=== PATIENT | female | born 1940 | race Hispanic/Latino ===

== ENCOUNTER → 2017-05-04 | Outpatient (CLI) | payer MEDICARE, OTHER ==
[~2017-05-04] MED LIST: ALPR0.255 PO; CLON.1; GABA-529; LOSA50TA37
== END | disposition home or self-care (01) ==
LOC: RAH 13:34
PROVIDERS: ATTEND Psychiatry & Neurology Neurology
DX: I67.89 Other cerebrovascular disease (principal)
CPT/HCPCS: 70450

== ENCOUNTER 2019-04-20 11:01 | Emergency (ER) | payer MEDICARE, OTHER ==
[~2019-04-20 11:01] MED LIST changes: -CLON.1; +CLON0.1T2; -LOSA50TA37; +LOSA50TA64
[2019-04-20] MEDS ORDERED: CLONIDINE HCL 0.1 MG TABLET ONE (11:36)
[2019-04-20 11:42] LABS: BASOPHILS % (AUTO) 1.2 % (0.0-5.0); EOSINOPHILS % (AUTO) 3.6 % (0.0-8.0); HEMATOCRIT 44.5 % (36-48); LYMPHOCYTES % (AUTO) 38.4 % (21.0-51.0); MEAN CORPUSCULAR HEMOGLOBIN 24.8 pg (27.0-33.0); MEAN CORPUSCULAR HGB CONC 31.5 g/dL (32.0-36.0); MEAN CORPUSCULAR VOLUME 78.8 fL (79-99); MONOCYTES % (AUTO) 6.8 % (3.0-13.0); NEUTROPHILS % (AUTO) 49.9 % (40.0-77.0); PLATELET COUNT (AUTO) 266 K/uL (130-400); RED BLOOD CELL COUNT(AUTO) 5.65 MIL/uL (4.00-5.50); RED CELL DISTRIBUTION WIDTH 14.7 % (11.0-15.5); WHITE BLOOD COUNT (AUTO) 6.9 K/uL (4.8-10.8)
[2019-04-20 12:16] LABS: APPEARANCE,URINE Clear (CLEAR); BILIRUBIN,URINE Negative (NEGATIVE); COLOR,URINE Yellow (YELLOW); GLUCOSE, URINE (UA) Negative (NEGATIVE); KETONES,URINE Negative (NEGATIVE); LEUKOCYTE ESTERASE ,URINE Moderate (NEGATIVE); NITRATE,URINE Negative (NEGATIVE); OCCULT BLOOD,URINE Negative (NEGATIVE); PH,URINE 7.5 (5.0-8.0); PROTEIN,URINE Negative (NEGATIVE); UROBILINOGEN,URINE 0.2 mg/dL (0.2-1.0)
[2019-04-20 12:24] LABS: CREATININE 0.7 mg/dL (0.5-1.5); POTASSIUM 3.3 mmol/L (3.5-5.1)
[2019-04-20 12:29] LABS: BILIRUBIN,TOTAL 0.5 mg/dL (0.2-1.0); TOTAL PROTEIN, SERUM 8.2 g/dL (6.0-8.3)
[2019-04-20] MEDS ORDERED: SODIUM CHLORIDE 0.9% 1000ML 1,000 ML IV ONE (12:33)
[2019-04-20] MEDS ORDERED: SODIUM CHLORIDE 0.9% 50 ML IV ONE (12:33)
[2019-04-20 12:48] LABS: BACTERIA,URINE Rare /HPF (None Seen); RBC,URINE 0-1 /HPF (0-1); WBC,URINE 0-1 /HPF (0-1)
== END 2019-04-20 13:17 | disposition home or self-care (01) ==
LOC: EDH 11:01
DX: I10 Essential (primary) hypertension (principal); R20.2 Paresthesia of skin; Z86.73 Personal history of transient ischemic attack (TIA), and cerebral infarction without residual deficits
CPT/HCPCS: 36415; 70450; 80053; 81001; 84484; 85025; 93005; 99285; J7030

== ENCOUNTER 2019-05-10 21:37 | Emergency (ER) | payer OTHER ==
[2019-05-10] MEDS ORDERED: ONDANSETRON HCL 4 MG/2 ML VIAL ONE (22:14)
[2019-05-10] MEDS ORDERED: MORPHINE SULFATE 4 MG/1ML SYG ONE (22:14)
[2019-05-10 22:22] LABS: EOSINOPHILS % (AUTO) 3.3 % (0.0-8.0); HEMATOCRIT 44.5 % (36-48); LYMPHOCYTES % (AUTO) 26.3 % (21.0-51.0); MEAN CORPUSCULAR HEMOGLOBIN 24.6 pg (27.0-33.0); MEAN CORPUSCULAR HGB CONC 31.2 g/dL (32.0-36.0); MEAN CORPUSCULAR VOLUME 78.9 fL (79-99); MONOCYTES % (AUTO) 7.3 % (3.0-13.0); NEUTROPHILS % (AUTO) 61.9 % (40.0-77.0); PLATELET COUNT (AUTO) 231 K/uL (130-400); RED BLOOD CELL COUNT(AUTO) 5.64 MIL/uL (4.00-5.50); RED CELL DISTRIBUTION WIDTH 14.7 % (11.0-15.5); WHITE BLOOD COUNT (AUTO) 9.3 K/uL (4.8-10.8)
[2019-05-10 22:34] LABS: CREATININE 0.6 mg/dL (0.5-1.5); POTASSIUM 3.7 mmol/L (3.5-5.1)
[2019-05-10 22:38] LABS: INR 0.89 (0.85-1.15); PARTIAL THROMBOPLASTIN TIME 26.4 SEC (26.3-35.5); PROTHROMBIN TIME 9.4 SEC (9.6-11.6)
[2019-05-10 22:39] LABS: ALBUMIN 3.8 g/dL (3.5-5.0); BILIRUBIN,TOTAL 0.4 mg/dL (0.2-1.0); TOTAL PROTEIN, SERUM 7.8 g/dL (6.0-8.3)
== END 2019-05-11 00:32 | disposition home or self-care (01) ==
LOC: EDH 21:37
DX: I10 Essential (primary) hypertension (principal); R51 Headache; R11.2 Nausea with vomiting, unspecified; Z86.73 Personal history of transient ischemic attack (TIA), and cerebral infarction without residual deficits
CPT/HCPCS: 36415; 70450; 71045; 80053; 82550; 84484; 85025; 85610; 85730; 93005; 96374; 96375; 99284; J2270; J2405

== ENCOUNTER 2019-11-25 15:28 | Emergency (ER) | payer MEDICARE ==
[2019-11-25 16:05] LABS: BASOPHILS % (AUTO) 0.8 % (0.0-5.0); EOSINOPHILS % (AUTO) 3.3 % (0.0-8.0); HEMATOCRIT 45.6 % (36-48); LYMPHOCYTES % (AUTO) 31.8 % (21.0-51.0); MEAN CORPUSCULAR HEMOGLOBIN 25.2 pg (27.0-33.0); MEAN CORPUSCULAR VOLUME 78.8 fL (79-99); MONOCYTES % (AUTO) 5.8 % (3.0-13.0); PLATELET COUNT (AUTO) 264 K/uL (130-400); RED BLOOD CELL COUNT(AUTO) 5.79 MIL/uL (4.00-5.50); RED CELL DISTRIBUTION WIDTH 14.6 % (11.0-15.5)
[2019-11-25 16:11] LABS: APPEARANCE,URINE Clear (CLEAR); BILIRUBIN,URINE Negative (NEGATIVE); COLOR,URINE Yellow (YELLOW); GLUCOSE, URINE (UA) Negative (NEGATIVE); KETONES,URINE Negative (NEGATIVE); LEUKOCYTE ESTERASE ,URINE Moderate (NEGATIVE); NITRATE,URINE Negative (NEGATIVE); OCCULT BLOOD,URINE Negative (NEGATIVE); PH,URINE 6.5 (5.0-8.0); PROTEIN,URINE Negative (NEGATIVE)
[2019-11-25 16:13] LABS: CREATININE 0.6 mg/dL (0.5-1.5); POTASSIUM 3.5 mmol/L (3.5-5.1)
[2019-11-25 16:17] LABS: BACTERIA,URINE Few /HPF (None Seen); RBC,URINE None Seen /HPF (0-1); SQUAMOUS EPITHELIAL CELL,UR 0-2 /HPF (0-2)
[2019-11-25 16:18] LABS: ALBUMIN 4.5 g/dL (3.5-5.0); BILIRUBIN,TOTAL 0.7 mg/dL (0.2-1.0); TOTAL PROTEIN, SERUM 8.6 g/dL (6.0-8.3)
== END 2019-11-25 17:19 | disposition home or self-care (01) ==
LOC: EDH 15:28
DX: N39.0 Urinary tract infection, site not specified (principal); H92.02 Otalgia, left ear; I10 Essential (primary) hypertension; Z86.73 Personal history of transient ischemic attack (TIA), and cerebral infarction without residual deficits; W01.190A Fall on same level from slipping, tripping and stumbling with subsequent striking against furniture, initial encounter; Y93.89 Activity, other specified; Y92.89 Other specified places as the place of occurrence of the external cause; Y99.8 Other external cause status
CPT/HCPCS: 36415; 70450; 72125; 80053; 81001; 82550; 84484; 85025; 87088; 93005

== ENCOUNTER 2020-04-13 07:47 | Emergency (ER) | payer MEDICARE ==
[2020-04-13] MEDS ORDERED: HYDRALAZINE HCL 25 MG TABLET ONE (08:20)
[2020-04-13 08:38] LABS: BASOPHILS % (AUTO) 0.6 % (0.0-5.0); HEMATOCRIT 45.6 % (36-48); LYMPHOCYTES % (AUTO) 17.8 % (21.0-51.0); MEAN CORPUSCULAR HEMOGLOBIN 25.2 pg (27.0-33.0); MEAN CORPUSCULAR HGB CONC 31.8 g/dL (32.0-36.0); MEAN CORPUSCULAR VOLUME 79.2 fL (79-99); NEUTROPHILS % (AUTO) 72.1 % (40.0-77.0); PLATELET COUNT (AUTO) 280 K/uL (130-400); RED BLOOD CELL COUNT(AUTO) 5.76 MIL/uL (4.00-5.50); RED CELL DISTRIBUTION WIDTH 14.6 % (11.0-15.5); WHITE BLOOD COUNT (AUTO) 14.5 K/uL (4.8-10.8)
[2020-04-13 08:49] LABS: BILIRUBIN,URINE Negative (NEGATIVE); COLOR,URINE Yellow (YELLOW); GLUCOSE, URINE (UA) Negative (NEGATIVE); KETONES,URINE Negative (NEGATIVE); LEUKOCYTE ESTERASE ,URINE Moderate (NEGATIVE); NITRATE,URINE Negative (NEGATIVE); OCCULT BLOOD,URINE Negative (NEGATIVE); PH,URINE 6.5 (5.0-8.0); PROTEIN,URINE Trace mg/dL (NEGATIVE)
[2020-04-13 08:50] LABS: APPEARANCE,URINE HAZY (CLEAR)
[2020-04-13] MEDS ORDERED: CEFTRIAXONE SODIUM 1 GM ONE (09:01)
[2020-04-13] MEDS ORDERED: SODIUM CHLORIDE 0.9% 50 ML IV ONE (09:01)
[2020-04-13 09:06] LABS: BILIRUBIN,TOTAL 1.4 mg/dL (0.2-1.0); CREATININE 0.6 mg/dL (0.5-1.5); POTASSIUM 3.3 mmol/L (3.5-5.1); TOTAL PROTEIN, SERUM 8.4 g/dL (6.0-8.3)
[2020-04-13 09:09] LABS: BACTERIA,URINE Rare /HPF (None Seen); MUCUS,URINE Few LPF (None Seen); RBC,URINE 0-1 /HPF (0-1); SQUAMOUS EPITHELIAL CELL,UR Rare /HPF (0-2)
== END 2020-04-13 09:50 | disposition home or self-care (01) ==
LOC: EDH 07:47
DX: N39.0 Urinary tract infection, site not specified (principal); I10 Essential (primary) hypertension; Z20.828 Contact with and (suspected) exposure to other viral communicable diseases
CPT/HCPCS: 36415; 80053; 81001; 84484; 85025; 87088; 87426; 93005; 96365; 99284; J0696; U0003

== ENCOUNTER 2020-12-15 18:20 | Emergency (ER) | payer MEDICARE, OTHER ==
[~2020-12-15] VITALS: Ht 154.9 cm; Wt 65.8 kg
[2020-12-15] MEDS ORDERED: ACETAMINOPHEN 500 MG TABLET PO ONE (19:00)
[2020-12-15] MEDS ORDERED: TETANUS/DIPHTHERIA TOXOID [ADULT] 0.5 ML VIAL IM ONE (19:00)
[2020-12-15 19:56] LABS: BASOPHILS % (AUTO) 0.7 % (0.0-5.0); EOSINOPHILS % (AUTO) 2.4 % (0.0-8.0); HEMATOCRIT 43.3 % (36-48); LYMPHOCYTES % (AUTO) 16.6 % (21.0-51.0); MEAN CORPUSCULAR HGB CONC 31.6 g/dL (32.0-36.0); MEAN CORPUSCULAR VOLUME 78.9 fL (79-99); NEUTROPHILS % (AUTO) 73.9 % (40.0-77.0); PLATELET COUNT (AUTO) 266 K/uL (130-400); RED BLOOD CELL COUNT(AUTO) 5.49 MIL/uL (4.00-5.50); RED CELL DISTRIBUTION WIDTH 14.7 % (11.0-15.5); WHITE BLOOD COUNT (AUTO) 13.6 K/uL (4.8-10.8)
[2020-12-15 20:14] LABS: CREATININE 0.5 mg/dL (0.5-1.5); POTASSIUM 3.4 mmol/L (3.5-5.1)
[2020-12-15 20:19] LABS: ALBUMIN 3.8 g/dL (3.5-5.0); BILIRUBIN,TOTAL 0.7 mg/dL (0.2-1.0); TOTAL PROTEIN, SERUM 7.8 g/dL (6.0-8.3)
[2020-12-15] MEDS ORDERED: POTASSIUM BICARB/CIT AC 25 MEQ TABLET.EFF PO ONE (20:30)
[2020-12-15] MEDS ORDERED: ACET-2247 PO (20:41)
[2020-12-15] MEDS ORDERED: CLONIDINE HCL 0.1 MG TABLET PO ONE (21:00)
[2020-12-15 21:28] VITALS: BP 209/88
[2020-12-15] MEDS ORDERED: HYDRALAZINE HCL 10 MG TABLET PO SCH ×2 (21:30→22:00)
[2020-12-15 22:47] VITALS: BP 157/72
== END 2020-12-15 22:53 | disposition home or self-care (01) ==
LOC: EDH 18:20
DX: S16.1XXA Strain of muscle, fascia and tendon at neck level, initial encounter (principal); S00.12XA Contusion of left eyelid and periocular area, initial encounter; S80.02XA Contusion of left knee, initial encounter; S50.01XA Contusion of right elbow, initial encounter; S80.212A Abrasion, left knee, initial encounter; S50.311A Abrasion of right elbow, initial encounter; I10 Essential (primary) hypertension; Y93.01 Activity, walking, marching and hiking; Z79.899 Other long term (current) drug therapy; Z86.73 Personal history of transient ischemic attack (TIA), and cerebral infarction without residual deficits; W01.0XXA Fall on same level from slipping, tripping and stumbling without subsequent striking against object, initial encounter; Y93.89 Activity, other specified; Y92.090 Kitchen in other non-institutional residence as the place of occurrence of the external cause; Y99.8 Other external cause status
CPT/HCPCS: 36415; 70450; 70486; 71045; 72125; 73070; 73562; 80053; 84484; 85025; 90471; 90714; 93005

== ENCOUNTER 2021-05-02 10:45 | Emergency (ER) | payer MEDICARE, OTHER ==
[~2021-05-02] VITALS: Ht 154.9 cm; Wt 64.4 kg
[~2021-05-02 10:45] MED LIST changes: +ACET-2247 PO
[2021-05-02] MEDS ORDERED: HYDRALAZINE HCL 10 MG TABLET PO SCH (11:30)
[2021-05-02 12:07] LABS: BASOPHILS % (AUTO) 1.1 % (0.0-5.0); EOSINOPHILS % (AUTO) 3.5 % (0.0-8.0); LYMPHOCYTES % (AUTO) 36.9 % (21.0-51.0); MEAN CORPUSCULAR HEMOGLOBIN 24.8 pg (27.0-33.0); MEAN CORPUSCULAR HGB CONC 31.4 g/dL (32.0-36.0); MEAN CORPUSCULAR VOLUME 78.9 fL (79-99); MONOCYTES % (AUTO) 7.5 % (3.0-13.0); NEUTROPHILS % (AUTO) 50.7 % (40.0-77.0); PLATELET COUNT (AUTO) 240 K/uL (130-400); RED BLOOD CELL COUNT(AUTO) 5.45 MIL/uL (4.00-5.50); RED CELL DISTRIBUTION WIDTH 15.2 % (11.0-15.5); WHITE BLOOD COUNT (AUTO) 7.4 K/uL (4.8-10.8)
[2021-05-02 12:13] LABS: CREATININE 0.5 mg/dL (0.5-1.5); POTASSIUM 3.9 mmol/L (3.5-5.1)
[2021-05-02 12:18] LABS: ALBUMIN 3.7 g/dL (3.5-5.0); BILIRUBIN,TOTAL 1.1 mg/dL (0.2-1.0); TOTAL PROTEIN, SERUM 7.3 g/dL (6.0-8.3)
[2021-05-02 13:09] VITALS: BP 170/79
[2021-05-02] MEDS ORDERED: HYDR-4153 PO (13:26)
== END 2021-05-02 13:51 | disposition home or self-care (01) ==
LOC: EDH 10:45
DX: I10 Essential (primary) hypertension (principal); Z20.822 Contact with and (suspected) exposure to COVID-19; Z86.73 Personal history of transient ischemic attack (TIA), and cerebral infarction without residual deficits
CPT/HCPCS: 36415; 70450; 72125; 80053; 84484; 85025; 87635; 93005; 99285; C9803

== ENCOUNTER 2022-01-27 10:06 | Emergency (ER) | payer MEDICARE, OTHER ==
[~2022-01-27] VITALS: Ht 149.9 cm; Wt 66.2 kg
[~2022-01-27 10:06] MED LIST changes: +HYDR-4153 PO
[2022-01-27 10:24] LABS: BASOPHILS % (AUTO) 1.3 % (0.0-5.0); EOSINOPHILS % (AUTO) 4.2 % (0.0-8.0); HEMATOCRIT 46.4 % (36-48); LYMPHOCYTES % (AUTO) 25.5 % (21.0-51.0); MEAN CORPUSCULAR HEMOGLOBIN 24.5 pg (27.0-33.0); MEAN CORPUSCULAR HGB CONC 31.5 g/dL (32.0-36.0); MEAN CORPUSCULAR VOLUME 77.7 fL (79-99); MONOCYTES % (AUTO) 7.7 % (3.0-13.0); PLATELET COUNT (AUTO) 261 K/uL (130-400); RED BLOOD CELL COUNT(AUTO) 5.97 MIL/uL (4.00-5.50); RED CELL DISTRIBUTION WIDTH 15.3 % (11.0-15.5); WHITE BLOOD COUNT (AUTO) 7.8 K/uL (4.8-10.8)
[2022-01-27] MEDS ORDERED: METO50TA18 PO (10:24)
[2022-01-27] MEDS ORDERED: HYDR12.54 PO (10:25)
[2022-01-27] MEDS ORDERED: LOSA100T58 PO (10:25)
[2022-01-27] MEDS ORDERED: HYDR-4154 PO (10:26)
[2022-01-27 11:21] LABS: APPEARANCE,URINE CLEAR (CLEAR); BILIRUBIN,URINE NEGATIVE (NEGATIVE); COLOR,URINE COLORLESS (YELLOW); GLUCOSE, URINE (UA) NEGATIVE (NEGATIVE); KETONES,URINE NEGATIVE (NEGATIVE); LEUKOCYTE ESTERASE ,URINE NEGATIVE Leu/uL (NEGATIVE); NITRATE,URINE NEGATIVE (NEGATIVE); OCCULT BLOOD,URINE NEGATIVE (NEGATIVE); PROTEIN,URINE NEGATIVE (NEGATIVE); UROBILINOGEN,URINE 0.2 mg/dL (0.2-1.0)
[2022-01-27 11:52] LABS: CREATININE 0.7 mg/dL (0.5-1.5); POTASSIUM 3.7 mmol/L (3.5-5.1)
[2022-01-27 11:57] LABS: ALBUMIN 4.2 g/dL (3.5-5.0); TOTAL PROTEIN, SERUM 8.3 g/dL (6.0-8.3)
[2022-01-27] MEDS ORDERED: ACETAMINOPHEN 500 MG TABLET ONE (12:04)
[2022-01-27] MEDS ORDERED: ACETAMINOPHEN 500 MG TABLET PO ONE (12:30)
[2022-01-27] MEDS ORDERED: DICL20GE TP (16:12)
[2022-01-27 16:21] VITALS: BP 163/58
== END 2022-01-27 16:21 | disposition home or self-care (01) ==
LOC: EDH 10:06
DX: S16.1XXA Strain of muscle, fascia and tendon at neck level, initial encounter (principal); G44.209 Tension-type headache, unspecified, not intractable; E78.00 Pure hypercholesterolemia, unspecified; I10 Essential (primary) hypertension; Z98.890 Other specified postprocedural states; Z79.899 Other long term (current) drug therapy; V49.69XA Unspecified car occupant injured in collision with other motor vehicles in traffic accident, initial encounter; Y93.89 Activity, other specified; Y92.413 State road as the place of occurrence of the external cause; Y99.8 Other external cause status
CPT/HCPCS: 36415; 70450; 71045; 72125; 80053; 81003; 84484; 85025; 93005

== ENCOUNTER 2022-04-09 14:59 | Emergency (ER) | payer MEDICARE, OTHER ==
[~2022-04-09] VITALS: Ht 154.9 cm; Wt 69.9 kg
[~2022-04-09 14:59] MED LIST changes: +DICL20GE TP; +HYDR-4154 PO; +HYDR12.54 PO; +LOSA100T58 PO; +METO50TA18 PO
[2022-04-09 15:32] LABS: BASOPHILS % (AUTO) 1.3 % (0.0-5.0); EOSINOPHILS % (AUTO) 3.5 % (0.0-8.0); HEMATOCRIT 43.3 % (36-48); LYMPHOCYTES % (AUTO) 32.8 % (21.0-51.0); MEAN CORPUSCULAR HEMOGLOBIN 24.7 pg (27.0-33.0); MEAN CORPUSCULAR HGB CONC 31.6 g/dL (32.0-36.0); MONOCYTES % (AUTO) 8.8 % (3.0-13.0); NEUTROPHILS % (AUTO) 53.4 % (40.0-77.0); PLATELET COUNT (AUTO) 238 K/uL (130-400); RED BLOOD CELL COUNT(AUTO) 5.55 MIL/uL (4.00-5.50); RED CELL DISTRIBUTION WIDTH 15.3 % (11.0-15.5); WHITE BLOOD COUNT (AUTO) 6.4 K/uL (4.8-10.8)
[2022-04-09 15:41] LABS: CREATININE 0.6 mg/dL (0.5-1.5); POTASSIUM 3.5 mmol/L (3.5-5.1)
[2022-04-09 15:50] LABS: TOTAL PROTEIN, SERUM 7.6 g/dL (6.0-8.3)
[2022-04-09 16:15] LABS: APPEARANCE,URINE CLEAR (CLEAR); BILIRUBIN,URINE NEGATIVE (NEGATIVE); COLOR,URINE LIGHT-YELLOW (YELLOW); GLUCOSE, URINE (UA) NEGATIVE (NEGATIVE); KETONES,URINE NEGATIVE (NEGATIVE); LEUKOCYTE ESTERASE ,URINE 25 Leu/uL (NEGATIVE); NITRATE,URINE NEGATIVE (NEGATIVE); OCCULT BLOOD,URINE NEGATIVE (NEGATIVE); PH,URINE 6.5 (5.0-8.0); PROTEIN,URINE NEGATIVE (NEGATIVE); UROBILINOGEN,URINE 0.2 mg/dL (0.2-1.0)
[2022-04-09 16:23] LABS: BACTERIA,URINE RARE /HPF (None Seen); SQUAMOUS EPITHELIAL CELL,UR RARE /HPF (0-2); WBC,URINE 0-1 /HPF (0-1)
[2022-04-09] MEDS ORDERED: PANTOPRAZOLE 40 MG/VIAL IVP STA (17:05)
[2022-04-09 17:41] VITALS: BP 177/79
[2022-04-09] MEDS ORDERED: CEPH500B PO (18:00)
[2022-04-09] MEDS ORDERED: PANT40TA55 PO (18:00)
== END 2022-04-09 18:08 | disposition home or self-care (01) ==
LOC: EDH 14:59
DX: N39.0 Urinary tract infection, site not specified (principal); K29.70 Gastritis, unspecified, without bleeding; E78.00 Pure hypercholesterolemia, unspecified; I10 Essential (primary) hypertension; Z79.1 Long term (current) use of non-steroidal anti-inflammatories (NSAID); Z79.899 Other long term (current) drug therapy; Z86.73 Personal history of transient ischemic attack (TIA), and cerebral infarction without residual deficits; Z20.822 Contact with and (suspected) exposure to COVID-19
CPT/HCPCS: 99285; 96374; 71045; 87635; 83735; 84484; 80053; 85025; 81001; 36415; 93005; C9803; C9113

== ENCOUNTER 2022-07-04 22:23 | Emergency (ER) | payer MEDICARE, OTHER ==
[~2022-07-04] VITALS: Ht 154.9 cm; Wt 68.0 kg
[~2022-07-04 22:23] MED LIST changes: +CEPH500B PO; +PANT40TA55 PO
[2022-07-04] MEDS ORDERED: HYDRALAZINE 20MG/ML VIAL IV ONE (23:00)
[2022-07-04] MEDS ORDERED: MORPHINE 4 MG SYG ONE (23:18)
[2022-07-04] MEDS ORDERED: ONDANSETRON 4MG INJ ONE (23:19)
[2022-07-04] MEDS ORDERED: MORPHINE 4 MG SYG IVP ONE (23:30)
[2022-07-04] MEDS ORDERED: ONDANSETRON 4MG INJ IVP ONE (23:30)
[2022-07-04 23:37] LABS: BASOPHILS % (AUTO) 0.8 % (0.0-5.0); EOSINOPHILS % (AUTO) 3.4 % (0.0-8.0); HEMATOCRIT 43.9 % (36-48); LYMPHOCYTES % (AUTO) 17.5 % (21.0-51.0); MEAN CORPUSCULAR HEMOGLOBIN 24.8 pg (27.0-33.0); MEAN CORPUSCULAR HGB CONC 31.4 g/dL (32.0-36.0); MONOCYTES % (AUTO) 6.2 % (3.0-13.0); NEUTROPHILS % (AUTO) 71.8 % (40.0-77.0); PLATELET COUNT (AUTO) 235 K/uL (130-400); RED BLOOD CELL COUNT(AUTO) 5.56 MIL/uL (4.00-5.50); RED CELL DISTRIBUTION WIDTH 15.8 % (11.0-15.5); WHITE BLOOD COUNT (AUTO) 11.9 K/uL (4.8-10.8)
[2022-07-04 23:45] LABS: CREATININE 0.7 mg/dL (0.5-1.5); POTASSIUM 3.3 mmol/L (3.5-5.1)
[2022-07-04 23:50] LABS: ALBUMIN 3.9 g/dL (3.5-5.0); TOTAL PROTEIN, SERUM 7.6 g/dL (6.0-8.3)
[2022-07-04 23:53] LABS: APPEARANCE,URINE CLEAR (CLEAR); BILIRUBIN,URINE NEGATIVE (NEGATIVE); GLUCOSE, URINE (UA) NEGATIVE (NEGATIVE); KETONES,URINE NEGATIVE (NEGATIVE); LEUKOCYTE ESTERASE ,URINE NEGATIVE Leu/uL (NEGATIVE); NITRATE,URINE NEGATIVE (NEGATIVE); OCCULT BLOOD,URINE NEGATIVE (NEGATIVE); PH,URINE 6.5 (5.0-8.0); PROTEIN,URINE NEGATIVE (NEGATIVE); UROBILINOGEN,URINE 0.2 mg/dL (0.2-1.0)
[2022-07-05 00:04] LABS: COLOR,URINE Light-Yellow (YELLOW)
[2022-07-05] MEDS ORDERED: METH4TAB3 PO (04:30)
[2022-07-05 04:41] VITALS: BP 159/78
== END 2022-07-05 05:00 | disposition home or self-care (01) ==
LOC: EDH 22:23
DX: S00.03XA Contusion of scalp, initial encounter (principal); M79.18 Myalgia, other site; I10 Essential (primary) hypertension; Z79.1 Long term (current) use of non-steroidal anti-inflammatories (NSAID); Z79.899 Other long term (current) drug therapy; Z86.73 Personal history of transient ischemic attack (TIA), and cerebral infarction without residual deficits; W01.0XXA Fall on same level from slipping, tripping and stumbling without subsequent striking against object, initial encounter; Y93.89 Activity, other specified; Y92.89 Other specified places as the place of occurrence of the external cause; Y99.8 Other external cause status
CPT/HCPCS: 99285; 70450; 96374; 96375; 80053; 85025; 81003; 36415; 72125; J2405; J2270; J0360

== ENCOUNTER 2022-11-21 09:26 | Emergency (ER) | payer MEDICARE, OTHER ==
[~2022-11-21] VITALS: Ht 154.9 cm; Wt 64.9 kg
[~2022-11-21 09:26] MED LIST changes: -LOSA100T58 PO; +LOSA100T59 PO; +METH4TAB3 PO
[2022-11-21 10:06] LABS: EOSINOPHILS # (AUTO) 0.11 K/uL (0.00-0.70); EOSINOPHILS % (AUTO) 1.1 % (0.0-8.0); HEMATOCRIT 44.9 % (36-48); IMMATURE GRANULOCYTE ABSOLUTE 0.05 K/uL (0-1); LYMPHOCYTES # (AUTO) 1.6 K/uL (1.0-4.8); LYMPHOCYTES % (AUTO) 15.9 % (21.0-51.0); MEAN CORPUSCULAR HGB CONC 32.1 g/dL (32.0-36.0); MONOCYTES # (AUTO) 0.5 K/uL (0.1-1.0); MONOCYTES % (AUTO) 4.5 % (3.0-13.0); NEUTROPHILS # (AUTO) 7.9 K/uL (1.8-7.7); PLATELET COUNT (AUTO) 266 K/uL (130-400); RED BLOOD CELL COUNT(AUTO) 5.76 MIL/uL (4.00-5.50); RED CELL DISTRIBUTION WIDTH 15.5 % (11.0-15.5); WHITE BLOOD COUNT (AUTO) 10.2 K/uL (4.8-10.8)
[2022-11-21] MEDS ORDERED: ASPI-1197 PO (10:09)
[2022-11-21] MEDS ORDERED: EZET-86 PO (10:09)
[2022-11-21 10:21] LABS: CREATININE 0.6 mg/dL (0.5-1.5); POTASSIUM 3.7 mmol/L (3.5-5.1)
[2022-11-21 10:24] LABS: INR < 0.93 (0.85-1.15); PROTHROMBIN TIME 10.1 SEC (9.6-11.6)
[2022-11-21 10:25] LABS: PARTIAL THROMBOPLASTIN TIME 26.2 SEC (26.3-35.5)
[2022-11-21 10:26] LABS: ALBUMIN 4.2 g/dL (3.5-5.0); BILIRUBIN,TOTAL 0.7 mg/dL (0.2-1.0); TOTAL PROTEIN, SERUM 8.4 g/dL (6.0-8.3)
[2022-11-21 10:35] LABS: SARS-CoV-2, RNA, NAAT NEGATIVE SARS CoV-2 (NEGATIVE)
[2022-11-21 10:41] LABS: APPEARANCE,URINE CLEAR (CLEAR); BILIRUBIN,URINE NEGATIVE (NEGATIVE); COLOR,URINE LIGHT-YELLOW (YELLOW); GLUCOSE, URINE (UA) NEGATIVE (NEGATIVE); KETONES,URINE NEGATIVE (NEGATIVE); LEUKOCYTE ESTERASE ,URINE 75 Leu/uL (NEGATIVE); NITRATE,URINE NEGATIVE (NEGATIVE); OCCULT BLOOD,URINE NEGATIVE (NEGATIVE); PROTEIN,URINE NEGATIVE (NEGATIVE); UROBILINOGEN,URINE 0.2 mg/dL (0.2-1.0)
[2022-11-21 10:44] LABS: ADD UA MICROSCOPIC YES
[2022-11-21] MEDS ORDERED: HYDRALAZINE HCL 10 MG TABLET PO SCH (11:00)
[2022-11-21] MEDS ORDERED: ONDANSETRON 4MG INJ IVP ONE (11:00)
[2022-11-21 11:02] LABS: INFLUENZA TYPE A Negative For Type A (NEGATIVE); INFLUENZA TYPE B Negative For Type B (NEGATIVE)
[2022-11-21 11:20] LABS: B-TYPE NATRIURETIC PEPTIDE 75 pg/mL (0-100)
[2022-11-21 11:36] LABS: MUCUS,URINE RARE LPF (None Seen); SQUAMOUS EPITHELIAL CELL,UR FEW /HPF (0-2); TRANSITIONAL EPI CELLS,URINE RARE /HPF (None Seen)
[2022-11-21] MEDS ORDERED: LABETALOL 20MG SYG IV ONE (13:00)
[2022-11-21 16:36] VITALS: BP 136/60; PULSE 71; RESP 16; O2SAT 97
== END 2022-11-21 16:40 | disposition home or self-care (01) ==
LOC: EDH 09:26
DX: I10 Essential (primary) hypertension (principal); R82.81 Pyuria; E78.00 Pure hypercholesterolemia, unspecified; G43.909 Migraine, unspecified, not intractable, without status migrainosus; Z79.1 Long term (current) use of non-steroidal anti-inflammatories (NSAID); Z79.52 Long term (current) use of systemic steroids; Z79.82 Long term (current) use of aspirin; Z79.899 Other long term (current) drug therapy
CPT/HCPCS: 99285; 96374; 70450; 87635; 96375; 84484; 80053; 83880; 85025; 85610; 85730; 87077 ×2; 87088; 87186 ×2; 87804 ×2; 81001; 36415; 93005; C9803; J2405

== ENCOUNTER 2023-03-06 20:15 | Emergency (ER) | payer MEDICARE, OTHER ==
[~2023-03-06] VITALS: Ht 154.9 cm; Wt 64.9 kg
[~2023-03-06 20:15] MED LIST changes: +ASPI-1197 PO; +EZET-86 PO
[2023-03-06 23:51] LABS: APPEARANCE,URINE CLEAR (CLEAR); BILIRUBIN,URINE NEGATIVE (NEGATIVE); COLOR,URINE LIGHT-YELLOW (YELLOW); GLUCOSE, URINE (UA) NEGATIVE (NEGATIVE); KETONES,URINE NEGATIVE (NEGATIVE); LEUKOCYTE ESTERASE ,URINE 250 Leu/uL (NEGATIVE); NITRATE,URINE NEGATIVE (NEGATIVE); OCCULT BLOOD,URINE NEGATIVE (NEGATIVE); PH,URINE 6.5 (5.0-8.0); PROTEIN,URINE NEGATIVE (NEGATIVE); UROBILINOGEN,URINE 0.2 mg/dL (0.2-1.0)
[2023-03-06 23:52] LABS: BASOPHILS # (AUTO) 0.09 K/uL (0.00-0.20); BASOPHILS % (AUTO) 0.9 % (0.0-5.0); EOSINOPHILS # (AUTO) 0.22 K/uL (0.00-0.70); EOSINOPHILS % (AUTO) 2.3 % (0.0-8.0); HEMATOCRIT 41.4 % (36-48); IMMATURE GRANULOCYTE ABSOLUTE 0.06 K/uL (0-1); LYMPHOCYTES # (AUTO) 2.2 K/uL (1.0-4.8); LYMPHOCYTES % (AUTO) 22.7 % (21.0-51.0); MEAN CORPUSCULAR HEMOGLOBIN 24.9 pg (27.0-33.0); MEAN CORPUSCULAR HGB CONC 31.6 g/dL (32.0-36.0); MEAN CORPUSCULAR VOLUME 78.6 fL (79-99); MONOCYTES # (AUTO) 0.8 K/uL (0.1-1.0); MONOCYTES % (AUTO) 8.1 % (3.0-13.0); NEUTROPHILS # (AUTO) 6.4 K/uL (1.8-7.7); NEUTROPHILS % (AUTO) 65.4 % (40.0-77.0); PLATELET COUNT (AUTO) 228 K/uL (130-400); RED BLOOD CELL COUNT(AUTO) 5.27 MIL/uL (4.00-5.50); RED CELL DISTRIBUTION WIDTH 15.2 % (11.0-15.5); WHITE BLOOD COUNT (AUTO) 9.7 K/uL (4.8-10.8)
[2023-03-06 23:53] LABS: ADD UA MICROSCOPIC YES
[2023-03-06 23:57] LABS: RBC,URINE 0-1 /HPF (0-1); SQUAMOUS EPITHELIAL CELL,UR RARE /HPF (0-2)
[2023-03-07 00:02] LABS: CREATININE 0.6 mg/dL (0.5-1.5); POTASSIUM 3.3 mmol/L (3.5-5.1)
[2023-03-07 00:07] LABS: ALBUMIN 3.5 g/dL (3.5-5.0); BILIRUBIN,TOTAL 0.6 mg/dL (0.2-1.0); TOTAL PROTEIN, SERUM 7.1 g/dL (6.0-8.3)
[2023-03-07] MEDS ORDERED: ACETAMINOPHEN 325 MG TAB ONE (00:54)
[2023-03-07 00:59] VITALS: BP 135/67; PULSE 68; RESP 18; O2SAT 97
[2023-03-07] MEDS ORDERED: ACETAMINOPHEN 325 MG TAB PO ONE (01:00)
[2023-03-07] MEDS ORDERED: KCL 20 MEQ ERTAB PO ONE (01:00)
[2023-03-07] MEDS ORDERED: TETANUS/DIPHTHERIA TOXOID [ADULT] 0.5 ML VIAL IM ONE (01:00)
[2023-03-07] MEDS ORDERED: ERYTHROMYCIN BASE 0.5% OPHTH OINT 1 GM TUBE OD ONE (01:00)
== END 2023-03-07 01:19 | disposition home or self-care (01) ==
LOC: EDH 20:15
DX: S01.111A Laceration without foreign body of right eyelid and periocular area, initial encounter (principal); R09.89 Other specified symptoms and signs involving the circulatory and respiratory systems; I10 Essential (primary) hypertension; Z79.1 Long term (current) use of non-steroidal anti-inflammatories (NSAID); Z79.82 Long term (current) use of aspirin; Z79.899 Other long term (current) drug therapy; Z86.73 Personal history of transient ischemic attack (TIA), and cerebral infarction without residual deficits; W01.0XXA Fall on same level from slipping, tripping and stumbling without subsequent striking against object, initial encounter; Y93.89 Activity, other specified; Y92.89 Other specified places as the place of occurrence of the external cause; Y99.8 Other external cause status
CPT/HCPCS: 36415; 70450; 70486; 72125; 80053; 81001; 85025; 87088; 90471; 90714

== ENCOUNTER 2023-06-03 02:31 | Emergency (ER) | payer MEDICARE, OTHER ==
[~2023-06-03] VITALS: Ht 154.9 cm; Wt 64.9 kg
[~2023-06-03 02:31] MED LIST changes: -HYDR-4153 PO; -HYDR-4154 PO; +HYDR25TA67 PO; +HYDR50TA37 PO
[2023-06-03] MEDS: KETOROLAC 30MG VIAL (30MG/ML) IVP ONE (02:45)
[2023-06-03 02:48] LABS: BASOPHILS # (AUTO) 0.09 K/uL (0.00-0.20); BASOPHILS % (AUTO) 1.3 % (0.0-5.0); EOSINOPHILS # (AUTO) 0.39 K/uL (0.00-0.70); EOSINOPHILS % (AUTO) 5.5 % (0.0-8.0); HEMATOCRIT 41.2 % (36-48); IMMATURE GRANULOCYTE ABSOLUTE 0.02 K/uL (0-1); LYMPHOCYTES # (AUTO) 1.8 K/uL (1.0-4.8); LYMPHOCYTES % (AUTO) 24.9 % (21.0-51.0); MEAN CORPUSCULAR HGB CONC 31.8 g/dL (32.0-36.0); MEAN CORPUSCULAR VOLUME 78.5 fL (79-99); MONOCYTES # (AUTO) 0.7 K/uL (0.1-1.0); MONOCYTES % (AUTO) 10.1 % (3.0-13.0); NEUTROPHILS # (AUTO) 4.1 K/uL (1.8-7.7); NEUTROPHILS % (AUTO) 57.9 % (40.0-77.0); PLATELET COUNT (AUTO) 242 K/uL (130-400); RED BLOOD CELL COUNT(AUTO) 5.25 MIL/uL (4.00-5.50); RED CELL DISTRIBUTION WIDTH 15.3 % (11.0-15.5)
[2023-06-03 02:59] LABS: CREATININE 0.5 mg/dL (0.5-1.5); POTASSIUM 4.6 mmol/L (3.5-5.1)
[2023-06-03 03:04] LABS: ALBUMIN 3.6 g/dL (3.5-5.0); BILIRUBIN,TOTAL 0.6 mg/dL (0.2-1.0); TOTAL PROTEIN, SERUM 7.5 g/dL (6.0-8.3)
[2023-06-03 03:40] LABS: APPEARANCE,URINE CLEAR (CLEAR); BILIRUBIN,URINE NEGATIVE (NEGATIVE); COLOR,URINE COLORLESS (YELLOW); GLUCOSE, URINE (UA) NEGATIVE (NEGATIVE); KETONES,URINE NEGATIVE (NEGATIVE); LEUKOCYTE ESTERASE ,URINE 75 Leu/uL (NEGATIVE); NITRATE,URINE NEGATIVE (NEGATIVE); OCCULT BLOOD,URINE NEGATIVE (NEGATIVE); PROTEIN,URINE NEGATIVE (NEGATIVE); UROBILINOGEN,URINE 0.2 mg/dL (0.2-1.0)
[2023-06-03 03:42] LABS: ADD UA MICROSCOPIC YES
[2023-06-03] MEDS: LABETALOL 20MG VIAL IV ONE (03:45)
[2023-06-03 03:46] LABS: MUCUS,URINE RARE LPF (None Seen); RBC,URINE 0-1 /HPF (0-1); SQUAMOUS EPITHELIAL CELL,UR RARE /HPF (0-2)
[2023-06-03] MEDS: CEFTRIAXONE 2GM VIAL IVPB ONE (03:50)
[2023-06-03 03:55] VITALS: PULSE 59; RESP 15; O2SAT 98
[2023-06-03] MEDS ORDERED: METH-662 PO (04:07)
[2023-06-03] MEDS ORDERED: CEPH500C2 PO (04:07)
[2023-06-03] MEDS ORDERED: IBUP-1493 PO (04:07)
[2023-06-03 04:16] VITALS: BP 152/72; PULSE 60
== END 2023-06-03 04:32 | disposition home or self-care (01) ==
LOC: EDH 02:31
DX: S16.1XXA Strain of muscle, fascia and tendon at neck level, initial encounter (principal); I10 Essential (primary) hypertension; Z79.1 Long term (current) use of non-steroidal anti-inflammatories (NSAID); Z79.82 Long term (current) use of aspirin; Z79.899 Other long term (current) drug therapy; Z86.73 Personal history of transient ischemic attack (TIA), and cerebral infarction without residual deficits; X58.XXXA Exposure to other specified factors, initial encounter; Y93.89 Activity, other specified; Y92.89 Other specified places as the place of occurrence of the external cause; Y99.8 Other external cause status
CPT/HCPCS: 99285; 96374; 70450; 96375; 84484; 80053; 85025; 87088; 81001; 36415; 72040; 93005; J0696; J1885; J3490

== ENCOUNTER 2024-05-09 05:42 | Emergency (ER) | payer MEDICARE, OTHER ==
[~2024-05-09] VITALS: Ht 147.3 cm; Wt 64.9 kg
[~2024-05-09 05:42] MED LIST changes: +CEPH500C2 PO; +IBUP-1493 PO; +METH-662 PO
--- NOTE | 2024-05-09 06:05 | ERN ---
ED Note History of Present Illness Stated Complaint: CONSTIPATION, LEFT HAND TINGLING Chief Complaint: Multiple Complaints Time Seen by MD: 05:50 Dictation: This is an 83-year-old female who came into the emergency room with complaints of left hand tingling and constipation. Apparently she woke up around 3:15 a.m. and started feeling tingling of her left arm and she also feels really full with distended abdomen and constipation. Last bowel movement was 2 days ago she also reports some nausea but no vomitings diarrhea. 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 She was also complaining of right ear wax Blood pressure 208/88, pulse 87 respirations 16 temperature 97 pulse oximetry 97% on room air Her chronic medical problems include diabetes mellitus, hypertension, CVA, multiple TIAs with residual left-sided deficits., hypercholesterolemia Allergies: Coded Allergies: No Known Allergies (Unverified Allergy, Unknown, 11/03/13) No Known Drug Allergies (Unverified Allergy, Unknown, 05/11/19) Home Meds Active Scripts Cephalexin Monohydrate (Keflex) 500 Mg Cap, 500 MG PO QID for 7 Days, #28 CAP Prov:JITENDRA NINO MD 09/29/23 Methocarbamol (Robaxin) 750 Mg Tab, 500 MG PO Q12H, #12 TAB Prov:MARY MATTHEWS MD 06/03/23 Ibuprofen (Motrin/Advil) 800 Mg Tab, 600 MG PO Q8H, #12 TAB Prov:MARY MATTHEWS MD 06/03/23 Cephalexin (Cephalexin) 500 Mg Capsule, 500 MG PO Q6H for 14 Days, #56 CAP Prov:MARY MATTHEWS MD 06/03/23 Methylprednisolone (Medrol) 4 Mg Tab.ds.pk, 4 MG PO AD for 6 Days, #1 PACK Prov:JEANA SANTOS MD 07/05/22 Cephalexin Monohydrate (Keflex) 500 Mg Cap, 500 MG PO TID for 7 Days, #21 CAP Prov:JITENDRA NINO MD 04/09/22 Pantoprazole Sodium (Protonix) 40 Mg Ectab, 40 MG PO DAILY for 30 Days, #30 TAB.EC Prov:JITENDRA NINO MD 04/09/22 Diclofenac Sodium (Voltaren Arthritis Pain) 20 Gm Gel..gram., 20 GM TP BID for 10 Days, #30 TUBE Prov:JITENDRA NINO MD 01/27/22 Hydralazine HCl (Hydralazine HCl) 25 Mg Tablet, 25 MG PO TID for FOR BP >180, #40 TAB Prov:ONEIDA GALLEGO MD 05/02/21 Acetaminophen (Tylenol) 325 Mg Tablet, 650 MG PO Q4HPRN, #100 TAB Prov:SUKI COLÓN 12/15/20 Reported Medications Aspirin (Aspirin) 81 Mg Tab.chew, 81 MG PO DAILY, TAB.CHEW 11/21/22 Ezetimibe/Rosuvastatin Calcium (Rosuvastatin-Ezetimibe 10-10Mg) 1 Each Tablet, 1 EACH PO DAILY, TAB 11/21/22 Hydralazine HCl (Hydralazine HCl) 50 Mg Tablet, 50 MG PO TID, TAB 01/27/22 Hydrochlorothiazide (Hydrochlorothiazide) 12.5 Mg Tablet, 12.5 MG PO DAILY, TAB 01/27/22 Losartan Potassium (Losartan Potassium) 100 Mg Tablet, 100 MG PO DAILY, TAB 01/27/22 Metoprolol Tartrate (Metoprolol Tartrate) 50 Mg Tablet, 50 MG PO BID, TAB 01/27/22 Alprazolam (Alprazolam) 0.25 Mg Tablet, 0.25 MG PO DAILY PRN for IF SBP GREATER THAN 140, TAB 11/03/13 Clonidine HCl (Catapress) 0.1 Mg Tab, DAILY PRN for BLOOD PRESSURE>140, #30 11/03/13 Alprazolam (Alprazolam) 0.25 Mg Tablet, 0.125 MG PO DAILY PRN for ANXIETY/AGITATION, #60 11/03/13 Gabapentin (Gabapentin) 100 Mg Capsule, HS PRN for NUMBNESS, #30 11/03/13 Losartan Potassium (Losartan Potassium) 50 Mg Tablet, 100 BID, #60 11/03/13 Past Medical History Past Medical History: CVA, Diabetes-Type II, High Cholesterol, Hypertension, Stroke, TIA Additional Past Medical Hx: NECK, Surgical History: Other Surgical History Other: EYE SX Family History: Negative Social History: Negative, Lives with family History: Not Applicable RN Note Reviewed/Agreed w/PFSH: Yes Review of System Dictation Constitutional: Negative for fever,chills, and weight loss Eyes: Negative for injury, pain,redness, and discharge ENT: Negative for injury,pain or swelling Cardiovascular: Negative for chest pain, palpitations, and edema Respiratory: Negative for shortness of breath, cough, and wheezing, Abdomen/GI: Negative for abdominal pain, nausea, vomiting, diarrhea, and positive for constipation Back: Negative for injury and pain : Negative for injury, bleeding and discharge MS/Extremity: Negative for injury and deformity Skin: Negative for rash, and discoloration Neuro: Negative for headache, weakness, numbness,, and seizure tingling of left hand Psych: Negative for suicide ideation, homicidal ideation, and hallucinations Initial Vital Sign VS Vital Signs Date Time Temp Pulse Resp B/P (MAP) Pulse Ox O2 Delivery O2 Flow Rate FiO2 05/09/24 05:43 97.0 87 16 208/88 97 Room Air 05/09/24 05:59 0 21 Physical Exam Dictation General: awake, alert, NAD Head/Face: Normocephalic, 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 Skin: Warm, dry, normal turgor, no rash MS/Extremity: Pulses equal, no cyanosis, neurovascular intact, FROM Neuro: COAx4, GCS 15, strength 5/5, CN 2-12 intact, normal cerebellar exam, mildly reduced strength on the left side Psych: Normal behavior, mood, and affect normal Extremities-trace edema without any palpable cords, Homans sign is negative Results (Laboratory/Radiology) Laboratory/Radiology Laboratory Tests Test 05/09/24 06:07 05/09/24 06:17 Urine Color COLORLESS (YELLOW) Urine Appearance CLEAR (CLEAR) Urine pH 7.0 (5.0-8.0) Urine Specific [place] 1.009 (1.001-1.031) Urine Protein NEGATIVE mg/dL (NEGATIVE) Urine Glucose (UA) NEGATIVE mg/dL (NEGATIVE) Urine Ketones NEGATIVE mg/dL (NEGATIVE) Urine Occult Blood NEGATIVE (NEGATIVE) Urine Nitrate NEGATIVE (NEGATIVE) Urine Bilirubin NEGATIVE mg/dL (NEGATIVE) Urine Urobilinogen 0.2 mg/dL (0.2-1.0) Urine Leukocyte Esterase 75 Price/uL (NEGATIVE) H Urine RBC 0-1 /HPF (0-1) Urine WBC 6-10 /HPF (0-1) H Urine Squamous Epithelial Cells RARE /HPF (0-2) Urine Bacteria RARE /HPF (None Seen) White Blood Count 7.1 K/uL (4.8-10.8) Red Blood Count 5.39 MIL/uL (4.00-5.50) Hemoglobin 13.5 g/dL (12.0-16.0) Hematocrit 42.4 % (36-48) Mean Corpuscular Volume 78.7 fL (79-99) L Mean Corpuscular Hemoglobin 25.0 pg (27.0-33.0) L Mean Corpuscular Hemoglobin Concent 31.8 g/dL (32.0-36.0) L Red Cell Distribution Width 15.3 % (11.0-15.5) Platelet Count 267 K/uL (130-400) Mean Platelet Volume 12.0 fL (7.5-10.5) H Immature Granulocyte % (Auto) 0.4 % (0-1) Neutrophils (%) (Auto) 64.0 % (40.0-77.0) Lymphocytes (%) (Auto) 21.6 % (21.0-51.0) Monocytes (%) (Auto) 8.9 % (3.0-13.0) Eosinophils (%) (Auto) 3.7 % (0.0-8.0) Basophils (%) (Auto) 1.4 % (0.0-5.0) Neutrophils # (Auto) 4.5 K/uL (1.8-7.7) Lymphocytes # (Auto) 1.5 K/uL (1.0-4.8) Monocytes # (Auto) 0.6 K/uL (0.1-1.0) Eosinophils # (Auto) 0.26 K/uL (0.00-0.70) Basophils # (Auto) 0.10 K/uL (0.00-0.20) Absolute Immature Granulocyte (auto 0.03 K/uL (0-1) Nucleated Red Blood Cells 0.0 % (0.0-0.19) Red Blood Cell Morphology See comments Prothrombin Time 10.1 SEC (9.6-11.6) Prothromb Time International Ratio <= 0.93 (0.85-1.15) Activated Partial Thromboplast Time 31.9 SEC (26.3-35.5) Sodium Level 144 mmol/L (136-145) Potassium Level 3.2 mmol/L (3.5-5.1) L Chloride Level 106 mmol/L (101-111) Carbon Dioxide Level 27 mmol/L (21-32) Blood Urea Nitrogen 18 mg/dL (7-18) Creatinine 0.6 mg/dL (0.5-1.0) Glomerular Filtration Rate Calc 88 mL/min (>90) Random Glucose 124 mg/dL (70-105) H Total Calcium 9.5 mg/dL (8.5-10.1) Total Bilirubin 0.7 mg/dL (0.2-1.0) Direct Bilirubin 0.1 mg/dL (0.0-0.3) Aspartate Amino Transf (AST/SGOT) 21 U/L (10-37) Alanine Aminotransferase (ALT/SGPT) 22 U/L (12-78) Alkaline Phosphatase 89 U/L (50-136) Total Creatine Kinase 75 U/L (21-232) Troponin I High Sensitivity 11.7 ng/L (4-50) Total Protein 7.7 g/dL (6.0-8.3) Albumin 3.9 g/dL (3.5-5.0) Lipase 30 U/L (16-77) Labs Reviewed?: Yes EKG Comment: 12 lead EKG done on 05/09/2024 at 6:04 a.m. showed a heart rate of 82, NC interval 165, QRS 82, QT/QTC 392/458. Impression normal sinus rhythm with LVH occasional premature atrial complexes nonspecific ST-T changes but no acute ST elevations noted. Interpreted by ER MD Dr. Mata ED Course ED Course Orders Procedure Category Date Status Time 12 Lead Ekg Tracing- EKG 05/09/24 Complete Technical 05:54 Urinalysis Profile LAB 05/09/24 Complete 05:54 Cbc With Differential LAB 05/09/24 Complete 05:54 Basic Metabolic Panel LAB 05/09/24 Complete 05:54 Cardiac Panel LAB 05/09/24 Complete 05:54 Lipase LAB 05/09/24 Complete 05:54 Hepatic Function Panel LAB 05/09/24 Complete 05:54 Pt And Ptt LAB 05/09/24 Complete 05:56 Culture Urine KARLIE 05/09/24 Logged 06:56 Magnesium Citrate PHA 05/09/24 Complete (Magnesium Citrate) 07:00 Ondansetron 4mg Inj PHA 05/09/24 Complete (Zofran 4mg Inj) 07:00 Potassium Chloride PHA 05/09/24 Complete 20meq Er (K-Dur/Klor- 07:30 Ct Abdomen/Pelvis W/O CT 05/09/24 Resulted Contrast 07:37 Hydralazine 20mg Inj PHA 05/09/24 Complete (Apresoline 20mg In 08:00 Ceftriaxone 1g Vial PHA 05/09/24 Complete (Rocephine 1g Inj) 08:00 Current Medications Medications (Trade) Dose Ordered Sig/Tray Route PRN Reason Start Time Stop Time Status Last Admin Dose Admin Ceftriaxone Sodium (ROCEphine 1G INJ) 1 gm ONCE ONCE IVPB 05/09/24 08:00 05/09/24 08:01 DC 05/09/24 08:24 Hydralazine HCl (APRESOLine 20MG INJ) 10 mg ONCE ONCE IV 05/09/24 08:00 05/09/24 08:01 DC 05/09/24 08:24 Magnesium Citrate (Magnesium Citrate) 296 ml ONCE ONCE PO 05/09/24 07:00 05/09/24 07:01 DC 05/09/24 08:22 Ondansetron HCl (zoFRAN 4MG INJ) 4 mg ONCE ONCE IVP 05/09/24 07:00 05/09/24 07:01 DC 05/09/24 08:21 Potassium Chloride (K-Dur/Klor-Con 20meq) 40 meq ONCE ONCE PO 05/09/24 07:30 05/09/24 07:31 DC 05/09/24 08:22 Vital Signs Date Time Temp Pulse Resp B/P (MAP) Pulse Ox O2 Delivery O2 Flow Rate FiO2 05/09/24 08:00 97.3 77 18 197/66 97 Room Air* 0 21 05/09/24 06:41 69 18 185/74 95 Room Air* 0 21 05/09/24 05:59 97.3 79 20 192/72 96 Room Air* 0 21 05/09/24 05:43 97.0 87 16 208/88 97 Room Air We will perform diagnostic labs, advanced imaging and administer medications according to the patient's complaint. Once the results are available, will review and personally interpreted the labs to rule out any acute life- threatening emergency the trach require immediate intervention and treatment. I will then re-evaluate the patient after treatment and diagnostic exams have return to determine whether the patient requires any further testing, can safely be discharged home or need further admission to hospital for additional treatment and evaluation. Medical Decision Making MDM This is an 83-year-old female who came into the emergency room with complaints of left hand tingling and constipation. Apparently she woke up around 3:15 a.m. and started feeling tingling of her left arm and she also feels really full with distended abdomen and constipation. Last bowel movement was 2 days ago she also reports some nausea but no vomitings diarrhea. 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 She was also complaining of right ear wax Blood pressure 208/88, pulse 87 respirations 16 temperature 97 pulse oximetry 97% on room air Her chronic medical problems include diabetes mellitus, hypertension, CVA, multiple TIAs with residual left-sided deficits., hypercholesterol Patient had laboratory workup done, as well CT images of abdomen, no acute abnormality reported. Patient symptoms signs since to be related to uncontrolled blood pressure. She received IV hydralazine, so her home medication clonidine 0.1 mg was given. Patient nausea, discomfort resolved after improvement of hypertension. Patient he will be DC home with follow up recommendation with the her PCP in next 24 hours. Problem List Problem List: (1) Constipation (2) Uncontrolled hypertension (3) UTI (urinary tract infection) DX & DISP Disposition: Discharge Departure Impression: Primary Impression: Constipation Additional Impressions: UTI (urinary tract infection), Uncontrolled hypertension Condition: Stable Additional Instructions: RETURN TO ER FOR ANY ACUTE OR WORSENING SYMPTOMS. FOLLOW-UP IN 1-2 DAYS WITH PRIMARY PROVIDER FOR RECHECK OF TODAY'S SYMPTOMS. Referrals: JUDI ELKINS (PCP) Time of Disposition: 10:12 AJ MATA MD May 09, 2024 06:05 CESIA SHARMA MD May 09, 2024 10:12
--- NOTE | 2024-05-09 06:15 | EKG ---
[facility] Test Date: 2024-05-09 Test Time: 06:04:44 Pat Name: THIERNO CHAVARRIA Department: ED Room: Gender: F Clinical Research Manager: [id number] : 1940 Requested By: AJ MEJIA Order Number: [id number] Reading MD: Toni Ordonez Measurements Intervals [place] Rate: 82 P: 40 PA: 165 QRS: -10 QRSD: 82 T: 121 QT: 392 QTc: 458 Interpretive Statements Sinus rhythm Atrial premature complex Probable LVH with secondary repol abnrm Compared to ECG 06/03/2023 02:47:03 Atrial premature complex(es) now present Electronically Signed On 05-09-2024 17:40:05 [employer]WAY TRAIN OPERATOR by Toni Ordonez Please click the below link to view image of tracing.
[2024-05-09 06:48] LABS: BASOPHILS % (AUTO) 1.4 % (0.0-5.0); EOSINOPHILS # (AUTO) 0.26 K/uL (0.00-0.70); EOSINOPHILS % (AUTO) 3.7 % (0.0-8.0); HEMATOCRIT 42.4 % (36-48); IMMATURE GRANULOCYTE ABSOLUTE 0.03 K/uL (0-1); LYMPHOCYTES # (AUTO) 1.5 K/uL (1.0-4.8); LYMPHOCYTES % (AUTO) 21.6 % (21.0-51.0); MEAN CORPUSCULAR HGB CONC 31.8 g/dL (32.0-36.0); MEAN CORPUSCULAR VOLUME 78.7 fL (79-99); MONOCYTES # (AUTO) 0.6 K/uL (0.1-1.0); MONOCYTES % (AUTO) 8.9 % (3.0-13.0); NEUTROPHILS # (AUTO) 4.5 K/uL (1.8-7.7); PLATELET COUNT (AUTO) 267 K/uL (130-400); RED BLOOD CELL COUNT(AUTO) 5.39 MIL/uL (4.00-5.50); RED CELL DISTRIBUTION WIDTH 15.3 % (11.0-15.5); WHITE BLOOD COUNT (AUTO) 7.1 K/uL (4.8-10.8)
[2024-05-09 06:54] LABS: APPEARANCE,URINE CLEAR (CLEAR); BILIRUBIN,URINE NEGATIVE (NEGATIVE); COLOR,URINE COLORLESS (YELLOW); GLUCOSE, URINE (UA) NEGATIVE (NEGATIVE); KETONES,URINE NEGATIVE (NEGATIVE); LEUKOCYTE ESTERASE ,URINE 75 Leu/uL (NEGATIVE); NITRATE,URINE NEGATIVE (NEGATIVE); OCCULT BLOOD,URINE NEGATIVE (NEGATIVE); PROTEIN,URINE NEGATIVE (NEGATIVE); UROBILINOGEN,URINE 0.2 mg/dL (0.2-1.0)
[2024-05-09 06:56] LABS: ADD UA MICROSCOPIC YES
[2024-05-09 07:00] LABS: BACTERIA,URINE RARE /HPF (None Seen); RBC,URINE 0-1 /HPF (0-1); SQUAMOUS EPITHELIAL CELL,UR RARE /HPF (0-2)
[2024-05-09 07:03] LABS: INR <= 0.93 (0.85-1.15); PROTHROMBIN TIME 10.1 SEC (9.6-11.6)
[2024-05-09 07:05] LABS: PARTIAL THROMBOPLASTIN TIME 31.9 SEC (26.3-35.5)
[2024-05-09 07:14] LABS: ALBUMIN 3.9 g/dL (3.5-5.0); BILIRUBIN,DIRECT 0.1 mg/dL (0.0-0.3); BILIRUBIN,TOTAL 0.7 mg/dL (0.2-1.0); CREATININE 0.6 mg/dL (0.5-1.0); POTASSIUM 3.2 mmol/L (3.5-5.1); TOTAL PROTEIN, SERUM 7.7 g/dL (6.0-8.3)
--- NOTE | 2024-05-09 07:15 | NUR ---
PT IS ON MRI
--- NOTE | 2024-05-09 08:19 | HMCIMG ---
CT ABDOMEN PELVIS WITHOUT CONTRAST Clinical Information: Nausea/Vomitting, rule out SBO Comparison: CT Dose Index (CTDI): mGy Dose Length Product (DLP): total mGy-cm PROTOCOL: Routine noncontrast helical scanning of the abdomen and pelvis was performed at 5mm collimation. Findings: No evidence of nephro or ureterolithiasis is found. No hydronephrosis or ureteral dilatation is seen. The lung bases are clear. The spleen, pancreas, gallbladder and adrenal glands are unremarkable. The liver is unremarkable. It shows no focal masses. The appendix is unremarkable. There is diverticulosis of the colon particularly involving the sigmoid colon. There are no acute inflammatory changes to suggest diverticulitis. The small and large bowel and pelvic viscera are otherwise unremarkable. The bony and vascular structures are unremarkable for the patient's age. IMPRESSION: Diverticulosis of the colon particularly involving the sigmoid. Otherwise negative CT SCAN OF THE ABDOMEN AND PELVIS. NO RENAL STONES. NO ACUTE PATHOLOGY OR INFLAMMATION SEEN. This study was performed using dose reduction techniques to include automated exposure control and/or adjustment of the mA and/or kV according to patient size.
[2024-05-09] MEDS: ondanSETRON 4MG INJ IVP ONE (08:21)
[2024-05-09] MEDS: MAGNESIUM CITRATE 296 ML SOLUTION PO ONE (08:22)
[2024-05-09] MEDS: PoTASSium chloRIDE 20MEQ ER 20 MEQ ERTAB PO ONE (08:22)
[2024-05-09] MEDS: hydrALAZine 20MG/ML VIAL IV ONE (08:24)
[2024-05-09] MEDS: cefTRIAXone 1G VIAL IVPB ONE (08:24)
[2024-05-09 12:30] VITALS: BP 118/54; PULSE 77; RESP 18; TEMP 97.3; O2SAT 97
[2024-05-09] MEDS ORDERED: MACR100 PO (12:45)
== END 2024-05-09 12:57 | disposition home or self-care (01) ==
LOC: EDH 05:42
DX: K59.00 Constipation, unspecified (principal); N39.0 Urinary tract infection, site not specified; I10 Essential (primary) hypertension; K57.30 Diverticulosis of large intestine without perforation or abscess without bleeding; E11.9 Type 2 diabetes mellitus without complications; E78.00 Pure hypercholesterolemia, unspecified; Z79.01 Long term (current) use of anticoagulants; Z79.1 Long term (current) use of non-steroidal anti-inflammatories (NSAID); Z79.82 Long term (current) use of aspirin; Z79.899 Other long term (current) drug therapy
CPT/HCPCS: 99285; 74176; 96374; 96375; 82550; 80076; 84484; 80048; 83690; 85025; 85610; 85730; 87086; 81001; 36415; 93005; J0360; J0696; J2405

== ENCOUNTER 2024-08-03 23:29 | Emergency (ER) | payer MEDICARE, OTHER ==
[~2024-08-03] VITALS: Ht 154.9 cm; Wt 61.2 kg
[~2024-08-03 23:29] MED LIST changes: +MACR100 PO
[2024-08-04 01:02] VITALS: BP 155/70; PULSE 67; RESP 18; TEMP 98.2; O2SAT 98
== END 2024-08-04 01:12 | disposition home or self-care (01) ==
LOC: EDH 23:29
DX: R20.0 Anesthesia of skin (principal); Z53.21 Procedure and treatment not carried out due to patient leaving prior to being seen by health care provider